=== PATIENT | male | born 1980 | race Hispanic/Latino ===

== ENCOUNTER 2017-02-06 22:04 | Emergency (ER) | payer OTHER ==
[2017-02-06 22:30] VITALS: BP 146/94; PULSE 69; RESP 18; O2SAT 100
[2017-02-06] MEDS ORDERED: 0.9% Sodium Chloride Inhalation Solution ONE (23:47)
[2017-02-06] MEDS ORDERED: Fluorescein 0.6 mg Ophthalmic Strip ONE (23:47)
[2017-02-06] MEDS ORDERED: Tetracaine 0.5% 4 mL Ophthalmic Solution ONE (23:48)
--- NOTE | 2017-02-07 00:03 | ED.REPORT ---
HPI-Eye Problem Date of Service Feb 07, 2017 ED Provider: Mk Carrasco MD Patient is a 36 year old male who presents to the ED complaining of redness and pain of his right eye after sawing wood at 2pm this afternoon. The patient states that he was cutting framing timber at work and that he got sawdust into his eye. The patient was wearing goggles. He rinsed out his eye with water extensively, without relief of his discomfort. The patient denies any other medical complaints. He believes that his Tetanus is up to date. Nursing Notes Stated Complaint: SAWDUST IN EYE Chief Complaint: Eye Nursing Notes Reviewed: Yes Allergies: Coded Allergies: No Known Allergies (Unverified Allergy, Unknown, 05/22/14) General Time Seen by MD: 00:02 Chief Complaint Right eye affected, Pain, Redness Hx Obtained From: Patient Arrived By: Walk-in Sudden in Onset?: Yes Onset Occurred: 9 - 12 hours ago Symptom Duration: Since onset Location: : Eye right Quality: Painful Severity: Current: Moderate Severity: Maximum: Moderate Recent Healthcare: No recent doctor visit, No recent hospitalization Similar Sx Previous: No Past Medical History Past Medical History Reports: Hypertension Past Surgical History none reported Smoking History Unknown if Ever Smoker Social History Other Social History: Good social support, , Lives with children, Local resident Ambulatory Status Independent Review of Systems Constitutional: Denies: Chills, Fever Eyes: Reports: Eye pain right, Redness right, Denies: Eye pain left, Redness left Complete sys rev & neg: except as marked. Physical Exam Initial Vital Signs Vital Signs (First) Date Time Temp Pulse Resp B/P Pulse Ox O2 Delivery O2 Flow Rate FiO2 02/06/17 22:30 36.2 69 18 146/94 100 Room Air Initial VS: Reviewed, Vital signs abnormal Neck: Supple, Full range of motion Extremities: Vascular intact, Neuro intact, No swelling, No tenderness Skin: Warm, Dry, No cyanosis Neurologic: Alert, Oriented, Nonfocal Psychiatric: Mood/affect normal, Behavior normal, Normal thought content Head / Eyes: Normocephalic, PERRL, EOMI Cornea/Anterior Chamber: Negative: Foreign body R... Conjunctiva / Sclera: Positive: Injected right (with diffuse stain uptake) Small dark foreign body inner aspect of the upper lid, removed. General/Constitutional: Awake, Alert, No acute distress ENT: Airway patent, Mucous membranes moist Respiratory / Chest: No respiratory distress, No stridor Cardiovascular: Heart rate NL Procedures Foreign Body Removal - Eye Time: 00:12 Procedure Performed by: ED physician Consent / Setup / Site Prep: Consent from patient, Hand hygiene observed, Stand sterile technique Eye / Location / # FB: Right eye, Under lid, Single foreign body Anesthesia/Equipment/Procedure: Tetracaine, Eye lid(s) everted, Cotton swab removal Post-Procedure / Complications: Complete removal, Tolerated procedure well, Patient stable Re-Eval/Medical Decision Med Decision/Clinical Course 36-year-old male who got sawdust in his eyes while doing some overhead cutting framing lumber with a [employer]. He has conjunctival injection of the right eye. There is some diffuse stain uptake but no foreign body or corneal abrasion is seen. His lid was inverted and a small dark particle fluid was found lodged on the underside of the lid. This was removed without difficulty. He will be discharged home on flurbiprofen and gentamicin. Source of Hx: Old records Re-Evaluation/Progress : Time of Eval: 00:17 Patient Status: Condition improved Re-Evaluation/Progress Note: Patient understands and agrees with the plan to be discharged home. Discharge instructions and follow-up discussed. He can follow-up with ophthalmology if his pain does not improve. All questions were addressed. Return to the ED warnings given. Counseled Regarding: Diagnosis, Need for follow-up, When/why to return to ED Discharge & Departure Primary Impression: Foreign body of right eye Encounter type: initial encounter Qualified Code: T15.91XA - Foreign body on external eye, part unspecified, right eye, initial encounter Disposition: Home Discharge Condition All VS Reviewed: Yes Condition: Stable Patient Instructions: Eye Foreign Body (ED) Additional Instructions: There was a small foreign object stuck to the underside of your right upper eyelid. This was scratching the eye every time he blinked. I removed it. Flurbiprofen eyedrops, 1 drop in that eye 4 times a day as needed for pain, #1 bottle dispensed. Gentamicin eyedrops, 2 drops in the right eye 4 times a day to prevent infection, #1 bottle dispensed. This should be much more comfortable by tomorrow afternoon. If not follow-up with the eye doctor listed below. Referrals: [facility] (PCP) Honey Cherry MD Attestation Portions of this note were transcribed by Karin Baldwin. I, Dr. Carrasco personally performed the history, physical exam and medical decision-making; I reviewed and confirmed the accuracy of the information in the transcribed note. Signed by: Kayla Lozano, 02/07/2017 0044 copies to: Honey Cherry MD; [facility] Mk Carrasco MD Feb 07, 2017 00:03 Karin Baldwin Feb 07, 2017 00:15
[2017-02-07] MEDS ORDERED: _Gentamicin 0.3% Oph Solution 5 mL AFFECT_EYE SCH (00:25)
[2017-02-07] MEDS ORDERED: _Flurbiprofen 0.03% Oph Soln 2.5 mL AFFECT_EYE SCH (00:30)
== END 2017-02-07 01:27 | disposition home or self-care (01) ==
LOC: SED 22:04
DX: T15.91XA Foreign body on external eye, part unspecified, right eye, initial encounter (principal); X58.XXXA Exposure to other specified factors, initial encounter; Y92.59 Other trade areas as the place of occurrence of the external cause; Y93.H3 Activity, building and construction; Y99.0 Civilian activity done for income or pay; I10 Essential (primary) hypertension